=== PATIENT | female | born 1935 | race Caucasian/White ===

== ENCOUNTER 2018-03-20 10:02 | Outpatient (CLI) | payer OTHER | END 2018-03-20 10:03 | disposition home or self-care (01) | LOC: NONPT 10:02 | PROVIDERS: ATTEND Internal Medicine | DX: I82.502 Chronic embolism and thrombosis of unspecified deep veins of left lower extremity (principal) | CPT/HCPCS: 80048; 85610 ==

== ENCOUNTER 2018-03-27 11:26 | Outpatient (CLI) | END 2018-03-27 11:27 | disposition home or self-care (01) | LOC: NONPT 11:26 | PROVIDERS: ATTEND Internal Medicine | DX: I11.9 Hypertensive heart disease without heart failure (principal) | CPT/HCPCS: 81001 ==

== ENCOUNTER 2018-04-24 10:22 | Outpatient (CLI) | payer OTHER | END 2018-04-24 10:23 | disposition home or self-care (01) | LOC: NONPT 10:22 | PROVIDERS: ATTEND Internal Medicine | DX: I82.502 Chronic embolism and thrombosis of unspecified deep veins of left lower extremity (principal); I11.9 Hypertensive heart disease without heart failure | CPT/HCPCS: 80048; 85025; 85610 ==

== ENCOUNTER 2018-04-26 08:55 | Outpatient (CLI) | END 2018-04-26 09:18 | disposition short-term general hospital (02) | LOC: AMBL 08:55 | PROVIDERS: ATTEND Internal Medicine | DX: M79.604 Pain in right leg (principal); R53.1 Weakness; M25.551 Pain in right hip ==

== ENCOUNTER 2018-06-12 14:19 | Outpatient (CLI) | payer OTHER | END 2018-06-12 14:20 | disposition home or self-care (01) | LOC: NONPT 14:19 | PROVIDERS: ATTEND Internal Medicine | DX: I48.0 Paroxysmal atrial fibrillation (principal); I13.10 Hypertensive heart and chronic kidney disease without heart failure, with stage 1 through stage 4 chronic kidney disease, or unspecified chronic kidney disease; J44.9 Chronic obstructive pulmonary disease, unspecified | CPT/HCPCS: 80048; 85025; 85610 ==

== ENCOUNTER 2018-06-14 09:51 | Outpatient (CLI) | END 2018-06-14 09:52 | disposition home or self-care (01) | LOC: NONPT 09:51 | PROVIDERS: ATTEND Internal Medicine | DX: I48.0 Paroxysmal atrial fibrillation (principal); N18.3 Chronic kidney disease, stage 3 (moderate); I13.10 Hypertensive heart and chronic kidney disease without heart failure, with stage 1 through stage 4 chronic kidney disease, or unspecified chronic kidney disease | CPT/HCPCS: 82306; 82607; 82728; 85610 ==